=== PATIENT | male | born 1995 | race African-American/Black ===

== ENCOUNTER 2024-02-08 08:54 | Emergency (ER) | payer OTHER ==
[~2024-02-08] VITALS: Ht 177.8 cm; Wt 81.0 kg
[2024-02-08 09:01] VITALS: O2SAT 97
[2024-02-08] MEDS: LORAZEPAM 1MG TABLET PO ONE (09:52)
[2024-02-08 11:21] VITALS: BP 128/81; PULSE 80; RESP 20; TEMP 97.9
== END 2024-02-08 11:23 | disposition home or self-care (01) ==
LOC: ER 08:54
DX: F41.9 Anxiety disorder, unspecified (principal); Z98.890 Other specified postprocedural states
CPT/HCPCS: 93005; 99283

== ENCOUNTER 2024-03-18 08:49 | Emergency (ER) | payer OTHER ==
[~2024-03-18] VITALS: Ht 177.8 cm; Wt 75.0 kg
[2024-03-18 08:51] VITALS: BP 102/62; PULSE 83; RESP 18; TEMP 97.7; O2SAT 97
== END 2024-03-18 09:34 | disposition home or self-care (01) ==
LOC: ER 08:49
DX: S99.912A Unspecified injury of left ankle, initial encounter (principal); Z98.890 Other specified postprocedural states; W50.2XXA Accidental twist by another person, initial encounter; Y93.01 Activity, walking, marching and hiking; Y92.89 Other specified places as the place of occurrence of the external cause; Y99.8 Other external cause status
CPT/HCPCS: 99281